=== PATIENT | male | born 1985 | race Caucasian/White ===

== ENCOUNTER 2021-02-11 20:50 | Emergency (ER) | payer MEDICAID ==
[~2021-02-11] VITALS: Ht 177.8 cm; Wt 70.3 kg
[2021-02-11] MEDS ORDERED: OXYC-128 PO (21:58)
[2021-02-11] MEDS ORDERED: NAPR-1164 PO (21:58)
[2021-02-11] MEDS ORDERED: HYDROMORPHONE 1 MG/1 ML DISP.SYRIN IM ONE (22:00)
[2021-02-11] MEDS ORDERED: ONDANSETRON HCL 4 MG TABLET PO ONE (22:00)
[2021-02-11] MEDS ORDERED: KETOROLAC TROMETHAMINE 60 MG INJ IM ONE ×2 (22:00→22:11)
[2021-02-11] MEDS ORDERED: HYDROMORPHONE 2 MG/1 ML DISP.SYRIN ONE (22:11)
[2021-02-11] MEDS ORDERED: ONDANSETRON HCL 4 MG TABLET ONE (22:11)
--- NOTE | 2021-02-11 22:28 | NUR ---
Patient discharged to home in stable condition with taking patient home. Written and verbal after care instructions given. Patient verbalizes understanding of instructions. Stressed follow up or return to ER for worsening s/s.
[2021-02-11 22:29] VITALS: BP 105/68
== END 2021-02-11 22:29 | disposition home or self-care (01) ==
LOC: ER 20:55
DX: S39.012A Strain of muscle, fascia and tendon of lower back, initial encounter (principal); X50.9XXA Other and unspecified overexertion or strenuous movements or postures, initial encounter; Y92.89 Other specified places as the place of occurrence of the external cause
CPT/HCPCS: 96372; 99284; J1170; J1885; A4663; Q0162